=== PATIENT | male | born 1965 | race Caucasian/White ===

== ENCOUNTER 2017-06-10 05:48 | Day surgery (SDC) | payer OTHER ==
[2017-06-10] MEDS ORDERED: DIPRIVAN 200 MG/20 ML IV ONE (05:49)
[2017-06-10] MEDS ORDERED: Ketamine HCl 50 MG/ML IJ ONE (05:49)
[2017-06-10] MEDS ORDERED: Lactated Ringers 1,000 ML IV SCH (06:00)
[2017-06-10 08:02] VITALS: O2SAT 100
[2017-06-10 08:03] VITALS: BP 133/85; PULSE 81
--- NOTE | 2017-06-10 09:50 | OP ---
SURGERY DATE/TIME: 06/10/2017 0655 PREOPERATIVE DIAGNOSIS: Screening exam. POSTOPERATIVE DIAGNOSIS: Normal colon. PROCEDURE: Colonoscopy. SURGEON: Dr. Cameron. ANESTHESIA: MAC. Medications given by anesthesia department. HISTORY: The patient is a 51 year-old white male patient presenting now for screening colonoscopy. He was appraised of the risks of the procedure including the risk of perforation, phlebitis, untoward reaction to medication, bleeding and missed lesions. The patient verbalized his understanding and desired to have the procedure performed. DESCRIPTION OF PROCEDURE: The patient was given the medications by the anesthesia department. He had continuous pulse oximetry, ECG monitoring, intermittent blood pressure monitoring and tidal CO2 monitoring during the examination. He was placed in the left lateral decubitus position. A digital rectal examination was performed and revealed normal anal sphincter tone and no masses and normal prostate. The flexible Olympus pediatric colonoscope was used to intubate the rectum. A view of the colon was developed sequentially to the cecum. Upon insertion and withdrawal, including retroflex view in the rectum, no mucosal lesions were encountered. The scope was removed from the patient who tolerated the procedure well and was sent back to OP recovery in good condition. The prep was noted to be fair to good.
== END 2017-06-10 08:22 | disposition home or self-care (01) ==
LOC: SDC 05:48
PROVIDERS: ATTEND Family Medicine
PROC: 0DJD8ZZ Inspection of Lower Intestinal Tract, Via Natural or Artificial Opening Endoscopic (ICD-10-PCS; principal; 2017-06-10)
DX: Z12.11 Encounter for screening for malignant neoplasm of colon (principal); I10 Essential (primary) hypertension; K21.9 Gastro-esophageal reflux disease without esophagitis
CPT/HCPCS: 00812; J2704

== ENCOUNTER 2018-07-19 19:36 | Emergency (ER) | payer OTHER ==
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
[2018-07-19] MEDS ORDERED: NORCO 5/325 MG PO ONE ×2 (20:45→20:46)
[2018-07-19] MEDS ORDERED: NORCO 5/325 MG ONE (21:14)
[2018-07-19 21:22] VITALS: BP 140/89; PULSE 89; O2SAT 99
--- NOTE | 2018-07-20 08:46 | XRAY ---
Indication: Crush injury. Comparison: None 3 nonweightbearing views of the left foot demonstrates incomplete hairline fracture involving the shaft of the 1st metatarsal. Elsewhere mild 1st MTP bunion deformity. No other bony, articular, or soft tissue abnormalities.
== END 2018-07-19 21:40 | disposition home or self-care (01) ==
LOC: ED 19:36
DX: S92.315A Nondisplaced fracture of first metatarsal bone, left foot, initial encounter for closed fracture (principal); M19.90 Unspecified osteoarthritis, unspecified site; I10 Essential (primary) hypertension; K21.9 Gastro-esophageal reflux disease without esophagitis; Z79.899 Other long term (current) drug therapy; M79.672 Pain in left foot; J44.9 Chronic obstructive pulmonary disease, unspecified
CPT/HCPCS: 73630; 99284; A9270-GY

== ENCOUNTER 2019-02-20 20:31 | Emergency (ER) | payer OTHER ==
[2019-02-20 20:47] VITALS: O2SAT 97
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
[2019-02-20 21:16] LABS: ALBUMIN 4.4 g/dL (3.5-5.0); ALKALINE PHOSPHATASE 83 U/L (38-126); ANION GAP 20.1 MEQ/L (5-15); BLOOD UREA NITROGEN 12 mg/dL (9-20); CHLORIDE 97 mmol/L (98-107); CK-Creatinine Phosphokinase 78 U/L (55-170); Calcium 9.3 mg/dL (8.4-10.2); Carbon Dioxide 24 mmol/L (22-30); Creatinine 1 0.72 mg/dL (0.66-1.25); Glucose 94 mg/dL (74-106); Potassium 3.9 mmol/L (3.5-5.1); SGOT/AST 56 U/L (17-59); SGPT/ALT 47 U/L (0-50); SODIUM 136 mmol/L (137-145); Total Protein 8.1 g/dL (6.3-8.2)
[2019-02-20 21:18] LABS: Absolute Neutrophil Ct (ANC) 5.28 (1.4-6.9); BASOPHIL % 0.4 % (0.0-0.4); Basophil (Absolute #) 0.04 (0-0.4); Eosinophil % 1.3 % (0.00-5.0); Eosinophil (Absolute #) 0.14 (0-0.5); Hematocrit 38.2 % (42-50); Lymphocyte (Absolute #) 3.89 (1.0-4.6); Mean Cell Volume 93.6 fl (78-100); Mean Platelet Volume 10.1 fl (6-9.5); Monocyte (Absolute #) 1.15 (0.0-1.3); Neutrophil % 50.3 % (36.0-66.0); Platelet Count 273 K/mm3 (150-450); Red Blood Count 4.08 M/mm3 (4.1-5.6); White Blood Count 10.5 K/mm3 (4.0-10.5)
[2019-02-20 21:21] LABS: Mean Corpuscular Hemoglobin 31.8 pg (26-32)
[2019-02-20 21:22] VITALS: BP 101/67; PULSE 88
--- NOTE | 2019-02-21 07:06 | XRAY ---
Indication: Chest pain. Comparison: April 02, 2018. Portable chest again hyperinflated and clear. Heart and mediastinal structures within normal limits. Bony thorax intact again with mild degenerative changes, old left 8 rib fracture, and lower cervical fusion surgery. Impression: Stable nonacute hyperinflated chest.
== END 2019-02-20 21:55 | disposition home or self-care (01) ==
LOC: ED 20:31
DX: R07.9 Chest pain, unspecified (principal)
CPT/HCPCS: 36000; 36415; 71045; 80053; 82550; 83735; 84484; 85025; 85379; 93005; 93041; 99284

== ENCOUNTER 2020-08-17 11:58 | Emergency (ER) | payer OTHER ==
[2020-08-17] MEDS ORDERED: Activase 100 MG IV ONE (11:59)
--- NOTE | 2020-08-17 12:16 | XRAY ---
Indication: Possible CVA. Multiple contiguous axial images obtained through the head without contrast. Comparison: November 23, 2010. Age-appropriate global atrophy. New asymmetrically dense right middle cerebral artery, commonly associated with early ischemia. No acute intracranial hemorrhage, abnormal extra-axial fluid collection, or mass effect. Fourth ventricle is midline without hydrocephalus. Aguero-white matter differentiation preserved. Bony calvarium intact. Visualized paranasal sinuses and mastoid air cells are clear. Impression: Hyperdense right MCA, commonly associated with early ischemia. MRI may yield further information.
[2020-08-17 12:19] LABS: Absolute Neutrophil Ct (ANC) 7.27 (1.4-6.9); BASOPHIL % 0.2 % (0.0-0.4); Basophil (Absolute #) 0.02 (0-0.4); Eosinophil (Absolute #) 0.12 (0-0.5); Hematocrit 41.1 % (42-50); Hemoglobin 13.6 gm/dl (12.5-18.0); Lymphocyte (Absolute #) 2.69 (1.0-4.6); Lymphocytes % 23.4 % (24.0-44.0); Mean Cell Volume 93.4 fl (78-100); Mean Corpuscular Hemoglobin 30.9 pg (26-32); Mean Corpuscular Hgb Concent. 33.1 g/dl (32-36); Mean Platelet Volume 9.8 fl (7.5-11.0); Monocyte (Absolute #) 1.42 (0.0-1.3); Monocytes % 12.3 % (0.0-12.0); Neutrophil % 63.1 % (36.0-66.0); Platelet Count 270 K/mm3 (150-450); Red Cell Distribution Width 12.9 % (11.5-14.0); White Blood Count 11.5 K/mm3 (4.0-10.5)
[2020-08-17 12:23] LABS: Appearance SLIGHTLY CLOUDY (CLEAR); Bilirubin NEGATIVE (NEGATIVE); Blood MODERATE Ery/ul (0-5); Glucose NEGATIVE (NEGATIVE); Hyaline Casts 0-2 /LPF (0-2); Ketones NEGATIVE (NEGATIVE); Leukocyte Esterase NEGATIVE (NEGATIVE); Mucus SLIGHT /HPF (NEGATIVE); Nitrite NEGATIVE (NEGATIVE); Protein,Urine Dip NEGATIVE (Negative); Specific Gravity 1.013 (1.005-1.025); Urobilinogen NEGATIVE mg/dL (0-1)
[2020-08-17 12:30] LABS: INR 1.18 (0.8-3.0); PROTIME 13.4 SECONDS (8.83-12.87)
[2020-08-17 12:34] LABS: ALBUMIN 4.5 g/dL (3.5-5.0); ALKALINE PHOSPHATASE 74 U/L (38-126); ANION GAP 13.7 MEQ/L (5-15); BLOOD UREA NITROGEN 7 mg/dL (9-20); CHLORIDE 92 mmol/L (98-107); Calcium 9.6 mg/dL (8.4-10.2); Carbon Dioxide 30 mmol/L (22-30); Creatinine 1 1.08 mg/dL (0.66-1.25); EST GLOMERULAR FILTRATION RATE > 60.0 ML/MIN; Glucose 130 mg/dL (74-106); Potassium 4.5 mmol/L (3.5-5.1); SGOT/AST 32 U/L (17-59); SGPT/ALT 20 U/L (0-50); SODIUM 131 mmol/L (137-145); Total Protein 7.9 g/dL (6.3-8.2)
--- NOTE | 2020-08-17 12:43 | ERPHSYRPT ---
- History of Present Illness Time Seen by Provider: 08/17/20 12:05 Source: patient, family Exam Limitations: no limitations Patient Subjective Stated Complaint: BARNHART, weakness Triage Nursing Assessment: pt to ED c/o BARNHART and weakness onset 0900 this am. rates 10/10 BARNHART above R eye. RN x 2 assist to get pt from WC to bed. L upper and lower extremities have no effort against gravity. denies hx CVA. A&Ox4. states he was getting home from vet when he began to feel bad this am. Physician History: This is a 55-year-old white male who has a history of hypertension, COPD, emphysema, gastroesophageal reflux disease as well as chronic right "blindness". He presents with sudden onset of headache at approximately 930 this morning after he took his pet to the veterinary clinic. Patient came home and had the onset of headache. He was then somewhat confused and had left-sided facial droop as well as left side paralysis. He had some speech changes as well. Patient denies recent head injury. He has not had any recent surgery. He is only on aspirin. He is not on any anticoagulation therapy. Timing/Duration: today Severity: moderate Character of Deficits: new weakness, altered sensation, unable to speak Deficits: cannot stand, cannot walk Baseline/Normal Cognition: alert oriented x 3 Current Cognition: alert but confused Baseline Gait: walks w/o assistance Associated Symptoms: weakness (left side), slurred speech, headache Allergies/Adverse Reactions: No Known Drug Allergies Allergy (Verified 02/20/19 20:41) Home Medications: Albuterol Sulfate [Proair Hfa] 8.5 gm IH QIDPRN PRN 08/30/13 [History] Aspirin 81 mg PO DAILY 03/10/16 [History] Lisinopril 5 mg [Zestril 5 MG] 5 mg PO DAILY 03/10/16 [History] Cyclobenzaprine HCl 10 mg [Cyclobenzaprine 10 MG] 10 mg PO TID 06/09/17 [History] Fluticasone/Vilanterol [Breo Ellipta 100-25 Mcg INH] 1 each IH DAILY 06/09/17 [History] Montelukast Sodium 10 mg [Singulair 10 MG] 10 mg PO DAILY 06/09/17 [History] Omeprazole 20 MG [Prilosec 20 mg] 20 mg PO DAILY 06/09/17 [History] Hx Tetanus, Diphtheria Vaccination/Date Given: Yes (2015) Hx Influenza Vaccination/Date Given: Yes Hx Pneumococcal Vaccination/Date Given: Yes Travel Risk - International Travel Have you traveled outside of the country in past 3 weeks: No - Coronavirus Screening Are you exhibiting any of the following symptoms?: No Close contact with a COVID-19 positive Pt in past 14-21 Days: No - Vaccine Status Have you recieved a Covid-19 vaccination: No - Review of Systems Constitutional: No Symptoms Eyes: No Symptoms Ears, Nose, & Throat: No Symptoms Respiratory: No Symptoms Cardiac: No Symptoms Abdominal/Gastrointestinal: No Symptoms Genitourinary Symptoms: No Symptoms Musculoskeletal: No Symptoms Neurological: Headache, Speech Changes, Other (Cannot move left side upper and lower extremities) Psychological: No Symptoms Endocrine: No Symptoms Hematologic/Lymphatic: No Symptoms Immunological/Allergic: No Symptoms All Other Systems: Reviewed and Negative - Past Medical History Pertinent Past Medical History: Yes Neurological History: Migraines ENT History: No Pertinent History Cardiac History: No Pertinent History, Hypertension Respiratory History: COPD, Emphysema, Pneumonia Endocrine Medical History: No Pertinent History Musculoskeletal History: Arthritis, Other GI Medical History: GERD History: No Pertinent History Psycho-Social History: No Pertinent History Male Reproductive Disorders: No Pertinent History Other Medical History: pt c/o diff with his right lung past year(pt states asbestos) 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 - Past Surgical History Past Surgical History: Yes Neuro Surgical History: No Pertinent History Cardiac: No Pertinent History Respiratory: No Pertinent History Gastrointestinal: No Pertinent History Genitourinary: No Pertinent History Musculoskeletal: No Pertinent History Male Surgical History: No Pertinent History Other Surgical History: NECK SURG X2( states "i don't know,they put something in it cause it was deteorated"),EAR SURG( ear drum hole closed with skin graft when "i was young" - Social History Smoking Status: Light tobacco smoker How long have you smoked: 36 years Exposure to second hand smoke: No Alcohol Use: Socially Drug Use: none Patient Lives Alone: No Significant Family History: hypertension - Nursing Vital Signs Nursing Vital Signs: Initial Vital Signs Temperature 98.9 F 08/17/20 12:02 Pulse Rate 89 08/17/20 12:02 Respiratory Rate 18 08/17/20 12:02 Blood Pressure 142/96 08/17/20 12:02 O2 Sat by Pulse Oximetry 97 08/17/20 12:02 Pain Scale Pain Intensity 0 - Physical Exam SpO2: 98 - Course Nursing assessment & vital signs reviewed: Yes EKG Interpreted by Me: RATE (89), Sinus Rhythm, NORMAL AXIS, NORMAL INTERVALS, NORMAL QRS, NORMAL ST-T, Other (No significant change from EKG dated 02/20/2019. There are no acute ischemic changes.) Ordered Tests: Active Orders 24 hr Category Date Time Status Sample Sewer STAT Care 08/17/20 12:02 Active EKG-ER Only STAT Care 08/17/20 12:02 Active IV Insertion STAT Care 08/17/20 12:02 Active NPO (ED) STAT Care 08/17/20 12:02 Active POCT Glucose Check STAT Care 08/17/20 12:02 Active Pulse Oximetry (ED) STAT Care 08/17/20 12:02 Active CTA HEAD W AND/OR WO CONTRAST [CT] Stat Exams 08/17/20 12:58 Taken HEAD WITHOUT CONTRAST [CT] Stat Exams 08/17/20 12:00 Completed CBC W DIFF Stat Lab 08/17/20 12:15 Completed CMP Stat Lab 08/17/20 12:15 Completed PROTIME WITH INR Stat Lab 08/17/20 12:15 Completed PTT Stat Lab 08/17/20 13:51 Ordered TROPONIN Q3H Lab 08/17/20 14:00 Ordered TROPONIN Q3H Lab 08/17/20 17:00 Ordered TROPONIN Q3H Lab 08/17/20 20:00 Ordered TROPONIN Q3H Lab 08/17/20 23:00 Ordered UA W/RFX UR CULTURE Stat Lab 08/17/20 12:15 Completed Medication Summary Generic Name Dose Route Start Last Admin Trade Name Freq PRN Reason Stop Dose Admin Sodium Chloride 500 mls @ 60 mls/hr 08/17/20 14:00 08/17/20 13:51 Sodium Chloride 0.9% 500 Ml IV 09/16/20 13:59 60 mls/hr .[id number] Administration Discontinued Medications Generic Name Dose Route Start Last Admin Trade Name Freq PRN Reason Stop Dose Admin Alteplase, Recombinant 6 mg 08/17/20 13:06 08/17/20 12:56 Activase 100 Mg IV 08/17/20 13:07 60 mg STAT STA Administration Lab/Rad Data: Laboratory Result Diagrams 08/17/20 12:15 08/17/20 12:15 Laboratory Results 08/17/20 08/17/20 08/17/20 Range/Units 12:15 12:15 12:15 WBC 11.5 H (4.0-10.5) K/mm3 RBC 4.40 (4.1-5.6) M/mm3 Hgb 13.6 (12.5-18.0) gm/dl Hct 41.1 L (42-50) % MCV 93.4 (78-100) fl MCH 30.9 (26-32) pg MCHC 33.1 (32-36) g/dl RDW 12.9 (11.5-14.0) % Plt Count 270 (150-450) K/mm3 MPV 9.8 (7.5-11.0) fl Gran % 63.1 (36.0-66.0) % Eos # (Auto) 0.12 (0-0.5) Absolute Lymphs (auto) 2.69 (1.0-4.6) Absolute Monos (auto) 1.42 H (0.0-1.3) Lymphocytes % 23.4 L (24.0-44.0) % Monocytes % 12.3 H (0.0-12.0) % Eosinophils % 1.0 (0.00-5.0) % Basophils % 0.2 (0.0-0.4) % Absolute Granulocytes 7.27 H (1.4-6.9) Basophils # 0.02 (0-0.4) PT 13.4 H (8.83-12.87) SECONDS INR 1.18 (0.8-3.0) Sodium 131 L (137-145) mmol/L Potassium 4.5 (3.5-5.1) mmol/L Chloride 92 L (98-107) mmol/L Carbon Dioxide 30 (22-30) mmol/L Anion Gap 13.7 (5-15) MEQ/L BUN 7 L (9-20) mg/dL Creatinine 1.08 (0.66-1.25) mg/dL Estimated GFR > 60.0 ML/MIN Glucose 130 H (74-106) mg/dL Calcium 9.6 (8.4-10.2) mg/dL Total Bilirubin 0.60 (0.2-1.3) mg/dL AST 32 (17-59) U/L ALT 20 (0-50) U/L Alkaline Phosphatase 74 (38-126) U/L Serum Total Protein 7.9 (6.3-8.2) g/dL Albumin 4.5 (3.5-5.0) g/dL Urine Color (YELLOW) Urine Appearance (CLEAR) Urine pH (5-6) Ur Specific [place] (1.005-1.025) Urine Protein (Negative) Urine Ketones (NEGATIVE) Urine Blood (0-5) Pa/ul Urine Nitrite (NEGATIVE) Urine Bilirubin (NEGATIVE) Urine Urobilinogen (0-1) mg/dL Ur Leukocyte Esterase (NEGATIVE) Urine WBC (Auto) (0-5) /HPF Urine RBC (Auto) (0-2) /HPF U Hyaline Cast (Auto) (0-2) /LPF Urine Bacteria (Auto) (NEGATIVE) /HPF Urine Mucus (Auto) (NEGATIVE) /HPF Urine Culture Reflexed (NO) Urine Glucose (NEGATIVE) mg/dL 08/17/20 Range/Units 12:15 WBC (4.0-10.5) K/mm3 RBC (4.1-5.6) M/mm3 Hgb (12.5-18.0) gm/dl Hct (42-50) % MCV (78-100) fl MCH (26-32) pg MCHC (32-36) g/dl RDW (11.5-14.0) % Plt Count (150-450) K/mm3 MPV (7.5-11.0) fl Gran % (36.0-66.0) % Eos # (Auto) (0-0.5) Absolute Lymphs (auto) (1.0-4.6) Absolute Monos (auto) (0.0-1.3) Lymphocytes % (24.0-44.0) % Monocytes % (0.0-12.0) % Eosinophils % (0.00-5.0) % Basophils % (0.0-0.4) % Absolute Granulocytes (1.4-6.9) Basophils # (0-0.4) PT (8.83-12.87) SECONDS INR (0.8-3.0) Sodium (137-145) mmol/L Potassium (3.5-5.1) mmol/L Chloride (98-107) mmol/L Carbon Dioxide (22-30) mmol/L Anion Gap (5-15) MEQ/L BUN (9-20) mg/dL Creatinine (0.66-1.25) mg/dL Estimated GFR ML/MIN Glucose (74-106) mg/dL Calcium (8.4-10.2) mg/dL Total Bilirubin (0.2-1.3) mg/dL AST (17-59) U/L ALT (0-50) U/L Alkaline Phosphatase (38-126) U/L Serum Total Protein (6.3-8.2) g/dL Albumin (3.5-5.0) g/dL Urine Color YELLOW (YELLOW) Urine Appearance SLIGHTLY CLOUDY (CLEAR) Urine pH 5.0 (5-6) Ur Specific [place] 1.013 (1.005-1.025) Urine Protein NEGATIVE (Negative) Urine Ketones NEGATIVE (NEGATIVE) Urine Blood MODERATE (0-5) Pa/ul Urine Nitrite NEGATIVE (NEGATIVE) Urine Bilirubin NEGATIVE (NEGATIVE) Urine Urobilinogen NEGATIVE (0-1) mg/dL Ur Leukocyte Esterase NEGATIVE (NEGATIVE) Urine WBC (Auto) 3-5 (0-5) /HPF Urine RBC (Auto) 16-25 (0-2) /HPF U Hyaline Cast (Auto) 0-2 (0-2) /LPF Urine Bacteria (Auto) NONE (NEGATIVE) /HPF Urine Mucus (Auto) SLIGHT (NEGATIVE) /HPF Urine Culture Reflexed NO (NO) Urine Glucose NEGATIVE (NEGATIVE) mg/dL - Progress Progress: improved, re-examined Progress Note: 08/17/20 13:03 Medical decision making: This patient view is in need of TPA. Neurologist is evaluating the patient via teleneurology. She agrees. She also recommends a CTA of the head with rapid infusion of the contrast to evaluate for clot in the distribution of the middle cerebral artery. The radiology department states that they do not do a CT a perfusion at our institution. CAT scan of the head without contrast shows new asymmetrically dense right middle cerebral artery commonly associated with early ischemia. No evidence of intracranial hemorrhage. 08/17/20 13:59 Medical decision making: The patient underwent the teleneurology consultation. The patient received TPA. His NIH score went from 15-13. The CTA of the head results have not returned but I did contact Dr. Buenrostro, neurologist at [facility]. I reviewed the patient history, condition, management that occurred here in the emergency department as well as the work-up results. Dr. Buenrostro has no new recommendations other than to get the patient to [place]. Have called an air ambulance system to transport this patient. Counseled pt/family regarding: lab results, diagnosis, rad results - Departure Departure Disposition: Transfer Clinical Impression: Acute CVA (cerebrovascular accident) Condition: Stable Critical Care Time: Yes Critical Care Time(excluding separately billable procedures): Critical 30-74 mins Referrals: NOELLE PALMER [Primary Care Provider] -
[2020-08-17] MEDS: Activase 100 MG IV STA (12:56)
[2020-08-17] MEDS ORDERED: Sodium Chloride 0.9% 500 ML 500 ML IV ONE (13:51)
[2020-08-17] MEDS: Sodium Chloride 0.9% 500 ML 500 ML IV SCH (13:51)
--- NOTE | 2020-08-17 14:05 | XRAY ---
Indication: Left-sided paralysis. Weakness. Right middle cerebral artery ischemia. Conventional contrast enhanced CTA head performed using 100 cc Isovue 370 contrast. Two-dimensional sagittal and coronal reformatted images obtained. Additional 3-dimensional reformatted images obtained using a separate workstation. Comparison: None Distal right internal carotid artery including carotid siphon and carotid terminus are occluded. Distal left internal carotid artery demonstrates mild carotid siphon calcifications producing less than 50% stenosis. Normal left carotid terminus with normal branching left anterior and left middle cerebral arteries. Right anterior cerebral artery is normal in CTA appearance and supplied via anterior communicating artery. The right middle cerebral artery and its distal branches appear attenuated and perfused via both anterior and right posterior communicating arteries. Posterior circulation demonstrates dominant distal left vertebral artery and attenuated right vertebral artery. Normal CTA appearance to the basilar artery, basilar tip, posterior cerebral, and anterior inferior cerebellar arteries. There is no abnormal enhancing intra or extra-axial mass. Impression: 1. 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 2. Right middle cerebral artery and more distal branches are attenuated and appear to be perfused via remaining [place] arteries, specifically anterior communicating and right posterior communicating arteries. 3. Remaining CTA head is negative.
[2020-08-17] MEDS ORDERED: solu-MEDROL 125 MG ONE (14:08)
[2020-08-17] MEDS ORDERED: BENADRYL 50 MG/ML ONE (14:08)
[2020-08-17] MEDS ORDERED: Pepcid 20 MG VIAL IV ONE (14:08)
[2020-08-17] MEDS: BENADRYL 50 MG/ML IV ONE (14:10)
[2020-08-17] MEDS: solu-MEDROL 125 MG IV ONE (14:10)
[2020-08-17] MEDS: Pepcid 20 MG VIAL IV SCH (14:10)
[2020-08-17 14:14] VITALS: BP 149/88; PULSE 97; O2SAT 97
== END 2020-08-17 15:00 | disposition short-term general hospital (02) ==
LOC: ED 11:58
DX: I63.9 Cerebral infarction, unspecified (principal); R51.9 Headache, unspecified; R53.1 Weakness; I10 Essential (primary) hypertension; J44.9 Chronic obstructive pulmonary disease, unspecified; Z79.899 Other long term (current) drug therapy
CPT/HCPCS: 36000; 36415; 70450; 70496; 80053; 81001; 84484; 85025; 85610; 85730; 93005; 93041; 94760; 96374; 96375; 99285; 99291; J1200; J2930; J2997

== ENCOUNTER 2020-10-26 06:36 | Day surgery (SDC) | payer OTHER ==
--- NOTE | 2020-10-20 14:32 | HP ---
DATE OF SURGERY: 10/26/2020 HISTORY OF PRESENT ILLNESS: The patient presents with undesired PEG tube. Reports that he had a stroke back in August 2020 and that is why the PEG tube was placed. He is eating fine now and the patient desires removal. PEG tube was placed at [facility]. It is very tender. Attempted removal in office was too painful for patient. PAST MEDICAL HISTORY: Hypertension, stroke, chronic obstructive pulmonary disease, hyperlipidemia. PAST SURGICAL HISTORY: Two neck surgeries. ALLERGIES: IV CONTRAST. MEDICATIONS: Tylenol, Albuterol, atorvastatin, lisinopril, Seroquel, aspirin, metoprolol, Singulair, Nitro, Protonix, fluticasone, gabapentin. FAMILY HISTORY: Blood clots. SOCIAL HISTORY: Drinks two beers a day. REVIEW OF SYSTEMS: CONSTITUTIONAL: Denies fever or chills. CHEST: Denies shortness of breath. CVS: Denies chest pain. ABDOMEN: Denies abdominal pain. INTEGUMENTARY: Negative. PHYSICAL EXAMINATION: GENERAL: No acute distress. CHEST: Nonlabored. No shortness of breath. CVS: Regular rate and rhythm. ABDOMEN: Soft, nontender. PEG tube in place. EXTREMITIES: No edema. NEUROLOGIC: Alert. PSYCHIATRIC: Appropriate. IMPRESSION: Undesired PEG tube. PLAN: Endoscopic removal of G-tube with Dr. Kenny Bloom. As dictated by Mai Caba NP.
[2020-10-26] MEDS ORDERED: Lactated Ringers 1,000 ML IV ONE (06:59)
[2020-10-26] MEDS ORDERED: Lactated Ringers 1,000 ML IV SCH (07:00)
[2020-10-26] MEDS ORDERED: DIPRIVAN 200 MG/20 ML IV ONE ×2 (09:37→09:49)
[2020-10-26 10:34] VITALS: O2SAT 95
--- NOTE | 2020-10-26 10:43 | OP ---
SURGERY DATE/TIME: 10/26/2020 0938 PREOPERATIVE DIAGNOSIS: Undesired PEG tube. POSTOPERATIVE DIAGNOSIS: The PEG tube has been successfully removed. There are no remnants left either externally or internally visible. On palpation there is slight induration but I think it is satisfactory right below the xiphoid. PROCEDURE: G-tube removal. SURGEON: Kenny Bloom M.D. ANESTHESIA: MAC. DESCRIPTION OF PROCEDURE: The scope is introduced. The pharyngoesophageal junction is normal. Esophagus normal. Gastroesophageal junction normal. Fundus, body and antrum satisfactory. Pylorus satisfactory. Duodenal bulb satisfactory. Second portion satisfactory. The scope withdrawn looped upon itself. Gastroesophageal junction satisfactory with no hiatal hernia. The G-tube hole was totally healed and the area was palpated externally and visualized internally and it was so healed that you really could hardly feel where it was other than under the external scar. It looked normal and there was no suggestion of any retained parts. Scope withdrawn. The patient tolerated the procedure satisfactorily. IMPRESSION: Satisfactory complete G-tube removal.
[2020-10-26 11:10] VITALS: BP 147/69; PULSE 76
== END 2020-10-26 11:05 | disposition home or self-care (01) ==
LOC: SDC 06:36
PROVIDERS: ATTEND Surgery
DX: Z43.1 Encounter for attention to gastrostomy (principal); Z86.73 Personal history of transient ischemic attack (TIA), and cerebral infarction without residual deficits; I10 Essential (primary) hypertension; J44.9 Chronic obstructive pulmonary disease, unspecified; E78.5 Hyperlipidemia, unspecified; Z79.899 Other long term (current) drug therapy; F17.210 Nicotine dependence, cigarettes, uncomplicated
CPT/HCPCS: J2704

== ENCOUNTER 2021-04-18 19:25 | Emergency (ER) | payer OTHER ==
--- NOTE | 2021-04-18 19:50 | ERPHSYRPT ---
- History of Present Illness Time Seen by Provider: 04/18/21 19:28 Source: patient Exam Limitations: no limitations Patient Subjective Stated Complaint: pt states he has been feeling bad since friday. states he has had a cough, chills, and fatigue. Triage Nursing Assessment: pt alert and oriented, answers questions approp. pt ambulatory with steady gait noted. respirations nonlabored with lungs cta. skin warm and dry. Physician History: 55 years old male with history of stroke with left-sided residual weakness, un vaccinated against COVID-19 presented in the ER with chief complaint of generalized weakness fatigue tiredness, subjective feeling of fever chills and body aches. Progressively worsening. Taking [id number] medication with symptomatic relief. Denies any cough, chest pain, shortness of breath /palpitations. No abdominal pain nausea or vomiting. Timing/Duration: day(s) (3), constant, gradual onset, worse Severity: moderate Associated Symptoms: nausea, cough, chills, fever, headaches, loss of appetite, malaise, weakness, No vomiting, No abdominal pain, No shortness of breath Allergies/Adverse Reactions: Iodinated Contrast Media Allergy (Severe, Verified 04/18/21 20:43) Home Medications: Albuterol Sulfate [Proair Hfa] 8.5 gm IH QIDPRN PRN 08/30/13 [History] Aspirin 81 mg PO DAILY 03/10/16 [History] Lisinopril 5 mg [Zestril 5 MG] 10 mg PO DAILY 03/10/16 [History] Fluticasone/Vilanterol [Breo Ellipta 100-25 Mcg INH] 1 each IH DAILY 06/09/17 [History] Montelukast Sodium 10 mg [Singulair 10 MG] 10 mg PO DAILY 06/09/17 [History] Acetaminophen 325 mg [Tylenol 325 mg] 2 tab PO Q4HPRN PRN 10/17/20 [History] Albuterol/Ipratropium 3ml Neb* [DUONEB 0.5-3 MG/3 ml Neb] 3 ml IH DAILY 10/17/20 [History] Atorvastatin Calcium 40 mg PO DAILY 10/17/20 [History] Gabapentin 300 mg [Neurontin 300 mg] 300 mg PO TID 10/17/20 [History] Metoprolol Tartrate 25 mg PO DAILY 10/17/20 [History] Nitroglycerin 0.4 mg Tablet [Nitrostat 0.4 MG Tablet] 0.4 mg SL Q5MIN PRN MR X 3 PRN 10/17/20 [History] PANTOPRAZOLE 40 mg Tablet [Protonix 40MG Tablet] 40 mg PO BID 10/17/20 [History] Quetiapine Fumarate 25 mg [Seroquel 25 MG] 25 mg PO HS 10/17/20 [History] Sennosides [Senna Laxative] 8.6 mg PO DAILY 10/17/20 [History] Hx Tetanus, Diphtheria Vaccination/Date Given: Yes (2015) Hx Influenza Vaccination/Date Given: No Hx Pneumococcal Vaccination/Date Given: Yes Immunizations Up to Date: Yes Travel Risk - International Travel Have you traveled outside of the country in past 3 weeks: No - Coronavirus Screening Are you exhibiting any of the following symptoms?: Yes Symptoms: Cough: New Onset, Headaches/Body Aches/Fatigue Close contact with a COVID-19 positive Pt in past 14-21 Days: No - Vaccine Status Have you recieved a Covid-19 vaccination: No - Review of Systems Constitutional: Fever, Chills, Fatigue, Weakness Eyes: No Symptoms Ears, Nose, & Throat: No Symptoms Respiratory: No Symptoms Cardiac: No Symptoms Abdominal/Gastrointestinal: No Symptoms Genitourinary Symptoms: No Symptoms Musculoskeletal: Myalgias Skin: No Symptoms Neurological: Headache Psychological: No Symptoms Endocrine: No Symptoms Hematologic/Lymphatic: No Symptoms Immunological/Allergic: Pollen Allergy - Past Medical History Pertinent Past Medical History: Yes Neurological History: Stroke ENT History: No Pertinent History Cardiac History: High Cholesterol, Hypertension Respiratory History: COPD Endocrine Medical History: No Pertinent History Musculoskeletal History: No Pertinent History GI Medical History: GERD History: No Pertinent History Psycho-Social History: No Pertinent History Male Reproductive Disorders: No Pertinent History Other Medical History: dentures - Past Surgical History Past Surgical History: Yes Neuro Surgical History: No Pertinent History Cardiac: No Pertinent History Respiratory: No Pertinent History Gastrointestinal: No Pertinent History Genitourinary: No Pertinent History Musculoskeletal: No Pertinent History Male Surgical History: No Pertinent History Other Surgical History: NECK SURG X2( states "i don't know,they put something in it cause it was deteorated"),EAR SURG( ear drum hole closed with skin graft when "i was young". G-tube placement 08-21-2020 - Social History Smoking Status: Former smoker How long have you smoked: 36 years Exposure to second hand smoke: No Alcohol Use: Socially Drug Use: none Patient Lives Alone: No Significant Family History: hypertension - Nursing Vital Signs Nursing Vital Signs: Initial Vital Signs Temperature 98.6 F 04/18/21 19:36 Pulse Rate 102 H 04/18/21 19:36 Respiratory Rate 18 04/18/21 19:36 Blood Pressure 148/103 04/18/21 19:36 O2 Sat by Pulse Oximetry 99 04/18/21 19:36 Pain Scale Pain Intensity 0 - Physical Exam General Appearance: no apparent distress, alert Eye Exam: PERRL/EOMI, eyes nml inspection Ears, Nose, Throat Exam: normal ENT inspection, TMs normal, pharynx normal, moist mucous membranes Neck Exam: normal inspection, non-tender, supple, full range of motion Respiratory Exam: normal breath sounds, lungs clear Cardiovascular Exam: regular rate/rhythm, normal heart sounds Gastrointestinal/Abdomen Exam: soft, normal bowel sounds, No tenderness Back Exam: normal inspection, normal range of motion Extremity Exam: normal inspection, normal range of motion, pelvis stable Neurologic Exam: alert, oriented x 3, cooperative, server developer II-XII nml as tested, normal mood/affect Skin Exam: normal color SpO2 Interpretation: normal SpO2: 99 O2 Delivery: Room Air Ordered Tests: Active Orders 24 hr Category Date Time Status IV Insertion STAT Care 04/18/21 20:13 Active CHEST 1 VIEW (PORTABLE) Stat Exams 04/18/21 20:14 Taken BLOOD CULTURE Stat Lab 04/18/21 20:14 Received CBC W DIFF Stat Lab 04/18/21 20:58 Completed CMP Stat Lab 04/18/21 20:58 Completed Lactic Acid Stat Lab 04/18/21 20:13 Completed UA W/RFX UR CULTURE Stat Lab 04/18/21 20:14 Ordered Medication Summary Discontinued Medications Generic Name Dose Route Start Last Admin Trade Name Freq PRN Reason Stop Dose Admin Acetaminophen 975 mg 04/18/21 20:13 04/18/21 20:31 Acetaminophen 325 Mg Tablet PO 12/01/21 20:14 975 mg STAT ONE Administration Acetaminophen Confirm 04/18/21 20:30 Acetaminophen 325 Mg Tablet Administered 04/18/21 20:31 Dose 975 mg .ROUTE .STK-MED ONE Lab/Rad Data: Laboratory Result Diagrams 04/18/21 20:58 04/18/21 20:58 Laboratory Results 04/18/21 04/18/21 04/18/21 Range/Units 20:58 20:58 20:13 WBC 5.4 (4.0-10.5) K/mm3 RBC 4.99 (4.1-5.6) M/mm3 Hgb 14.4 (12.5-18.0) gm/dl Hct 45.3 (42-50) % MCV 90.8 (78-100) fl MCH 28.9 (26-32) pg MCHC 31.8 L (32-36) g/dl RDW 14.6 H (11.5-14.0) % Plt Count 206 (150-450) K/mm3 MPV 11.1 H (7.5-11.0) fl Gran % 42.7 (36.0-66.0) % Eos # (Auto) 0.04 (0-0.5) Absolute Lymphs (auto) 2.36 (1.0-4.6) Absolute Monos (auto) 0.67 (0.0-1.3) Lymphocytes % 43.8 (24.0-44.0) % Monocytes % 12.4 H (0.0-12.0) % Eosinophils % 0.7 (0.00-5.0) % Basophils % 0.4 (0.0-0.4) % Absolute Granulocytes 2.30 (1.4-6.9) Basophils # 0.02 (0-0.4) Sodium 136 L (137-145) mmol/L Potassium 3.8 (3.5-5.1) mmol/L Chloride 97 L (98-107) mmol/L Carbon Dioxide 25 (22-30) mmol/L Anion Gap 18.0 H (5-15) MEQ/L BUN 12 (9-20) mg/dL Creatinine 0.70 (0.66-1.25) mg/dL Estimated GFR > 60.0 ML/MIN Glucose 91 (74-106) mg/dL Lactic Acid 1.1 (0.4-2.0) Calcium 9.1 (8.4-10.2) mg/dL Total Bilirubin 0.60 (0.2-1.3) mg/dL AST 42 (17-59) U/L ALT 19 (0-50) U/L Alkaline Phosphatase 71 (38-126) U/L Serum Total Protein 8.0 (6.3-8.2) g/dL Albumin 4.7 (3.5-5.0) g/dL - Progress Progress: improved, re-examined Progress Note: 04/18/21 22:18 55 years old is evaluated for flulike symptoms. Grossly unremarkable work-up including chest x-ray reviewed by me, official report is pending. Patient is unvaccinated and could be possible he probably have COVID-19. Outpatient testing is done, recommended contact/droplet precautions and symptomatic treatment/outpatient follow-up. Discussed signs symptoms of worsening needing return to ER which he seems understanding. Patient is maintaining oxygen saturation at around 99% on room air without any distress. Nontoxic appearance. Stable for discharge. Counseled pt/family regarding: lab results, diagnosis, need for follow-up, rad results - Departure Departure Disposition: Home Clinical Impression: Acute viral syndrome Condition: Stable Critical Care Time: No Referrals: NOELLE PALMER [Primary Care Provider] - Follow up/PCP as directed (1-2 days for reevaluation) Instructions: Viral Syndrome (DC) Additional Instructions: Take Tylenol as needed. Drink plenty of fluids. Follow contact/droplet precautions until your COVID-19 test is back. Return to ER if having worsening cough, persistent high-grade fever, difficulty breathing etc.
[2021-04-18] MEDS ORDERED: TYLENOL 325 MG PO ONE (20:13)
[2021-04-18] MEDS ORDERED: TYLENOL 325 MG ONE (20:30)
[2021-04-18 21:03] LABS: BASOPHIL % 0.4 % (0.0-0.4); Basophil (Absolute #) 0.02 (0-0.4); Eosinophil % 0.7 % (0.00-5.0); Eosinophil (Absolute #) 0.04 (0-0.5); Hematocrit 45.3 % (42-50); Hemoglobin 14.4 gm/dl (12.5-18.0); Lymphocyte (Absolute #) 2.36 (1.0-4.6); Lymphocytes % 43.8 % (24.0-44.0); Mean Cell Volume 90.8 fl (78-100); Mean Corpuscular Hemoglobin 28.9 pg (26-32); Mean Corpuscular Hgb Concent. 31.8 g/dl (32-36); Mean Platelet Volume 11.1 fl (7.5-11.0); Monocyte (Absolute #) 0.67 (0.0-1.3); Monocytes % 12.4 % (0.0-12.0); Neutrophil % 42.7 % (36.0-66.0); Platelet Count 206 K/mm3 (150-450); Red Blood Count 4.99 M/mm3 (4.1-5.6); Red Cell Distribution Width 14.6 % (11.5-14.0); White Blood Count 5.4 K/mm3 (4.0-10.5)
[2021-04-18 21:21] LABS: ALBUMIN 4.7 g/dL (3.5-5.0); ALKALINE PHOSPHATASE 71 U/L (38-126); BLOOD UREA NITROGEN 12 mg/dL (9-20); CHLORIDE 97 mmol/L (98-107); Calcium 9.1 mg/dL (8.4-10.2); Carbon Dioxide 25 mmol/L (22-30); EST GLOMERULAR FILTRATION RATE > 60.0 ML/MIN; Glucose 91 mg/dL (74-106); Potassium 3.8 mmol/L (3.5-5.1); SGOT/AST 42 U/L (17-59); SGPT/ALT 19 U/L (0-50); SODIUM 136 mmol/L (137-145)
[2021-04-18 22:35] VITALS: BP 131/93; PULSE 88; O2SAT 95
--- NOTE | 2021-04-19 08:58 | XRAY ---
Indication: Fever and weakness. Comparison: February 20, 2019. Portable chest remains hyperinflated and clear. Heart not enlarged. Bony thorax intact again with mild degenerative changes, old left 8 rib fracture, and lower cervical fusion surgery. No new/acute abnormalities.
== END 2021-04-18 22:45 | disposition home or self-care (01) ==
LOC: ED 19:25
DX: B34.9 Viral infection, unspecified (principal); R11.0 Nausea; R05.9 Cough, unspecified; R50.9 Fever, unspecified; R51.9 Headache, unspecified; I10 Essential (primary) hypertension; E78.5 Hyperlipidemia, unspecified
CPT/HCPCS: 36000; 36415; 71045; 80053; 83605; 85025; 87040; 99284; U0003; A9270-GY

== ENCOUNTER 2022-05-03 07:39 | Emergency (ER) | payer OTHER ==
[2012-05-19 08:01] VITALS: BP 123/66
--- NOTE | 2022-05-03 07:56 | ERPHSYRPT ---
- History of Present Illness Time Seen by Provider: 05/03/22 07:55 Source: patient, family Exam Limitations: clinical condition Physician History: This is a 66-year-old white male patient who is blind in his right eye and has no sensation per his report and has had a stroke in the past with left-sided weakness. His complaint is of eye pain in the left eye that has been persistent since yesterday. Patient has been living in a trailer outside of his brother's home and it is being powered by a battery. Apparently, the patient was seen at a walk-in clinic and was given a "salve" to put in his eyes. Patient's brother stated that he went back into the trailer. The patient then complained to his brother that his eyes were still hurting and therefore the brother went into the trailer and found that there was significant fumes in the trailer. The patient's brother then brought the patient into his home. This morning he has persistent left eye pain. He has no other complaints. He denies chest pain. He denies shortness of breath. Timing/Duration: yesterday Location: left eye Severity: mild (To moderate) Apparent Injury: no Associated Symptoms: burning, redness Visual Assistive Devices: None Chemical Exposure: Yes (Unknown type but as fumes not directly into his eyes) Allergies/Adverse Reactions: Iodinated Contrast Media Allergy (Severe, Verified 05/03/22 08:52) shellfish derived Allergy (Verified 05/03/22 08:52) Home Medications: Albuterol Sulfate [Proair Hfa] 8.5 gm IH QIDPRN PRN 08/30/13 [History] Aspirin 81 mg PO DAILY 03/10/16 [History] Lisinopril 5 mg [Zestril 5 MG] 10 mg PO DAILY 03/10/16 [History] Fluticasone/Vilanterol [Breo Ellipta 100-25 Mcg INH] 1 each IH DAILY 06/09/17 [History] Montelukast Sodium 10 mg [Singulair 10 MG] 10 mg PO DAILY 06/09/17 [History] Acetaminophen 325 mg [Tylenol 325 mg] 2 tab PO Q4HPRN PRN 10/17/20 [History] Albuterol/Ipratropium 3ml Neb* [DUONEB 0.5-3 MG/3 ml Neb] 3 ml IH DAILY 10/17/20 [History] Atorvastatin Calcium 40 mg PO DAILY 10/17/20 [History] Gabapentin [Neurontin ] 300 mg PO TID 10/17/20 [History] Metoprolol Tartrate 25 mg PO DAILY 10/17/20 [History] Nitroglycerin 0.4 mg Tablet [Nitrostat 0.4 MG Tablet] 0.4 mg SL Q5MIN PRN MR X 3 PRN 10/17/20 [History] PANTOPRAZOLE 40 mg Tablet [Protonix 40MG Tablet] 40 mg PO BID 10/17/20 [History] Quetiapine Fumarate 25 mg [Seroquel 25 MG] 25 mg PO HS 10/17/20 [History] Sennosides [Senna Laxative] 8.6 mg PO DAILY 10/17/20 [History] Clopidogrel Bisulfate [PLAVIX Tablet] 75 mg PO DAILY 05/03/22 [History] Travel Risk - International Travel Have you traveled outside of the country in past 3 weeks: No - Coronavirus Screening Are you exhibiting any of the following symptoms?: No Close contact with a COVID-19 positive Pt in past 14-21 Days: No - Review of Systems Constitutional: Other (Anxious) Eyes: Eye Pain (Left), Eye Redness (Left) Ears, Nose, & Throat: No Symptoms Respiratory: No Symptoms Cardiac: No Symptoms Abdominal/Gastrointestinal: No Symptoms Genitourinary Symptoms: No Symptoms Musculoskeletal: No Symptoms Skin: No Symptoms Neurological: No Symptoms Psychological: Anxiety Endocrine: No Symptoms Hematologic/Lymphatic: No Symptoms Immunological/Allergic: No Symptoms All Other Systems: Reviewed and Negative - Past Medical History Pertinent Past Medical History: Yes - Past Surgical History Past Surgical History: Yes - Nursing Vital Signs Nursing Vital Signs: Initial Vital Signs Temperature 97.6 F 05/03/22 07:48 Pulse Rate 132 H 05/03/22 07:48 Blood Pressure 174/119 05/03/22 07:48 O2 Sat by Pulse Oximetry 99 05/03/22 07:48 Pain Scale Pain Intensity 10 - Physical Exam General Appearance: mild distress, alert, anxiety Eye Exam: left eye: PERRL, bilateral eye: EOMI, conjunctival inflammation (Mild bilateral) Ears, Nose, Throat Exam: normal ENT inspection, moist mucous membranes Neck Exam: normal inspection, non-tender, supple, full range of motion Respiratory Exam: normal breath sounds, lungs clear, No chest tenderness, No respiratory distress Cardiovascular Exam: tachycardia Gastrointestinal Exam: soft, normal bowel sounds, No tenderness Extremity Exam: normal inspection, normal range of motion, pelvis stable Neurologic: alert, oriented x 3, cooperative, other (Patient has had a stroke in the past and has left side weakness) Lymphatic: No adenopathy SpO2 Interpretation: normal O2 Delivery: Room Air - Course Nursing assessment & vital signs reviewed: Yes Ordered Tests: Active Orders 24 hr Category Date Time Status EKG-ER Only STAT Care 05/03/22 08:19 Active IV Insertion STAT Care 05/03/22 07:59 Active cath [Cath for Specimen-Straight] STAT Care 05/03/22 11:45 Active CHEST 1 VIEW (PORTABLE) Stat Exams 05/03/22 08:19 Completed ABG [ARTERIAL BLOOD GASES] Stat Lab 05/03/22 11:05 Completed CBC W DIFF Stat Lab 05/03/22 08:13 Completed CMP Stat Lab 05/03/22 08:13 Completed CULTURE,URINE Stat Lab 05/03/22 11:46 Ordered ETHYL ALCOHOL Stat Lab 05/03/22 08:47 Completed MAGNESIUM Stat Lab 05/03/22 08:19 Completed UA W/RFX CULTURE Stat Lab 05/03/22 11:46 Completed Urine Triage Profile Stat Lab 05/03/22 11:46 Ordered Medication Summary Generic Name Dose Route Start Last Admin Trade Name Freq PRN Reason Stop Dose Admin Sodium Chloride 1,000 mls @ 999 mls/hr 05/03/22 11:22 05/03/22 11:29 Sodium Chloride 0.9% 1000 Ml IV 05/03/22 12:22 999 mls/hr .Q1H1M STA Administration Discontinued Medications Generic Name Dose Route Start Last Admin Trade Name Freq PRN Reason Stop Dose Admin Methylprednisolone Sodium 0 mg 05/03/22 08:00 05/03/22 08:19 Succinate 125 mg/ Sterile IV 05/03/22 08:01 125 mg Water 2 ml STAT ONE Administration Erythromycin 1 gm 05/03/22 10:16 05/03/22 10:38 Erythromycin Base 1 Gm Tube Eye Ointment OP 05/03/22 10:17 1 gm STAT STA Administration Erythromycin Confirm 05/03/22 10:37 Erythromycin Base 1 Gm Tube Eye Ointment Administered 05/03/22 10:38 Dose 1 gm .ROUTE .STK-MED ONE Fluorescein Sodium Confirm 05/03/22 08:00 Fluorescein Sodium 1 Mg/Strip Strip Administered 05/03/22 08:01 Dose 1 mg OP .STK-MED ONE Sodium Chloride 1,000 mls @ 999 mls/hr 05/03/22 08:00 05/03/22 10:39 Sodium Chloride 0.9% 1000 Ml IV 05/03/22 09:00 Infused .Q1H1M STA Infusion Sodium Chloride Confirm 05/03/22 08:15 Sodium Chloride 0.9% 1000 Ml Administered 05/03/22 08:16 Dose 1,000 mls @ ud .ROUTE .STK-MED ONE Sodium Chloride Confirm 05/03/22 11:28 Sodium Chloride 0.9% 1000 Ml Administered 05/03/22 11:29 Dose 1,000 mls @ ud .ROUTE .STK-MED ONE Lorazepam 1 mg 05/03/22 08:36 05/03/22 10:37 Lorazepam 2 Mg/1 Ml 2 Mg Vial IV 05/03/22 08:37 1 mg STAT ONE Administration Lorazepam Confirm 05/03/22 10:35 Lorazepam 2 Mg/1 Ml 2 Mg Vial Administered 05/03/22 10:36 Dose 2 mg .ROUTE .STK-MED ONE Methylprednisolone Sodium Succinate Confirm 05/03/22 08:15 Methylprednis Sod Succ 125 Mg/2 Ml Vial Administered 05/03/22 08:16 Dose 125 mg .ROUTE .STK-MED ONE Morphine Sulfate 4 mg 05/03/22 08:00 05/03/22 08:18 Morphine Sulfate 4 Mg/Ml Injection IV 05/03/22 08:01 4 mg STAT ONE Administration Morphine Sulfate Confirm 05/03/22 08:15 Morphine Sulfate 4 Mg/Ml Injection Administered 05/03/22 08:16 Dose 4 mg .ROUTE .STK-MED ONE Ondansetron HCl 4 mg 05/03/22 08:00 05/03/22 08:18 Ondansetron Hcl 4 Mg/2 Ml Vial IV 05/03/22 08:01 4 mg STAT ONE Administration Ondansetron HCl Confirm 05/03/22 08:14 Ondansetron Hcl 4 Mg/2 Ml Vial Administered 05/03/22 08:15 Dose 4 mg .ROUTE .STK-MED ONE Sterile Water Confirm 05/03/22 08:14 Water For Injection,Sterile 10 Ml Vial Administered 05/03/22 08:15 Dose 10 ml IJ .STK-MED ONE Tetracaine HCl Confirm 05/03/22 07:59 Tetracaine Hcl/Pf 4 Ml Bottle Administered 05/03/22 08:00 Dose 4 ml OP .STK-MED ONE Lab/Rad Data: Laboratory Result Diagrams 05/03/22 08:13 05/03/22 08:13 Laboratory Results 05/03/22 05/03/22 05/03/22 Range/Units 11:46 11:05 10:21 WBC (4.0-10.5) x10^3/uL RBC (4.1-5.6) x10^6/uL Hgb (12.5-18.0) g/dL Hct (42-50) % MCV (78-100) fL MCH (26-32) pg MCHC (32-36) g/dL RDW (11.5-14.0) % Plt Count (150-450) x10^3/uL MPV (7.5-11.0) fL Gran % (36.0-66.0) % Immature Gran % (Auto) (0.00-0.4) % Nucleat RBC Rel Count (0.00-0.1) % Eos # (Auto) (0-0.5) x10^3/uL Immature Gran # (Auto) (0.00-0.03) x10^3u/L Absolute Lymphs (auto) (1.0-4.6) x10^3/uL Absolute Monos (auto) (0.0-1.3) x10^3/uL Absolute Nucleated RBC (0.00-0.01) x10^3u/L Lymphocytes % (24.0-44.0) % Monocytes % (0.0-12.0) % Eosinophils % (0.00-5.0) % Basophils % (0.0-0.4) % Absolute Granulocytes (1.4-6.9) x10^3/uL Basophils # (0-0.4) x10^3/uL Puncture Site RIGHT RADIAL pCO2 41 (35-45) mmHg pO2 71 L (75-100) mmHg Base Excess -2.2 L (-2.0-2.0) O2 Saturation 93.8 L (94-100) g/dF ABG pH 7.36 (7.35-7.45) ABG HCO3 23.2 (22-28) ABG O2 Sat (Measured) 96.4 (95-100) % Perez Test YES A-a Gradient 77 a/A Ratio 0.48 Hemoglobin 13.2 Carboxyhemoglobin 2.2 (0.0-6.9) % THgb Methemoglobin 0.6 L (1.4-1.5) % Temperature 37.0 C POC O2 Flow Rate 28 % Sodium (137-145) mmol/L Potassium 4.2 (3.5-5.1) mmol/L Chloride (98-107) mmol/L Carbon Dioxide (22-30) mmol/L Anion Gap (5-15) MEQ/L BUN (9-20) mg/dL Creatinine (0.66-1.25) mg/dL Estimated GFR ML/MIN Glucose (74-106) mg/dL Calcium (8.4-10.2) mg/dL Magnesium (1.6-2.3) mg/dL Total Bilirubin (0.2-1.3) mg/dL AST (17-59) U/L ALT (0-50) U/L Alkaline Phosphatase (38-126) U/L Serum Total Protein (6.3-8.2) g/dL Albumin (3.5-5.0) g/dL Urinalys Dipstick Clnc MAIN LAB Urine Color YELLOW (YELLOW) Urine Appearance CLEAR (CLEAR) Urine pH 5.0 (5-6) Ur Specific [place] >=1.030 A (1.005-1.025) POC Urine Protein Conf NEGATIVE (Negative) Urine Ketones LARGE-80 A (NEGATIVE) Urine Nitrite NEGATIVE (NEGATIVE) Urine Bilirubin SMALL A (NEGATIVE) Urine Urobilinogen 0.2 (0-1) mg/dL Urine Leukocytes NEGATIVE (NEGATIVE) Urine WBC (Auto) NONE (0-5) /HPF Urine RBC (Auto) NONE (0-2) /HPF U Epithel Cells (Auto) NONE (FEW) /HPF Urine Bacteria (Auto) RARE (NEGATIVE) /HPF Urine RBC NEGATIVE (0-5) Pa/ul Urine Mucus (Auto) SLIGHT A (NEGATIVE) /HPF Ur Culture Indicated? NO Urine Glucose NEGATIVE (NEGATIVE) mg/dL Ethyl Alcohol (0-10) mg/dL Influenza Type A Ag NEGATIVE (NEGATIVE) Influenza Type B Ag NEGATIVE (NEGATIVE) RSV (PCR) NEGATIVE (Negative) SARS-CoV-2 (PCR) NEGATIVE (NEGATIVE) 05/03/22 05/03/22 05/03/22 Range/Units 08:47 08:19 08:13 WBC (4.0-10.5) x10^3/uL RBC (4.1-5.6) x10^6/uL Hgb (12.5-18.0) g/dL Hct (42-50) % MCV (78-100) fL MCH (26-32) pg MCHC (32-36) g/dL RDW (11.5-14.0) % Plt Count (150-450) x10^3/uL MPV (7.5-11.0) fL Gran % (36.0-66.0) % Immature Gran % (Auto) (0.00-0.4) % Nucleat RBC Rel Count (0.00-0.1) % Eos # (Auto) (0-0.5) x10^3/uL Immature Gran # (Auto) (0.00-0.03) x10^3u/L Absolute Lymphs (auto) (1.0-4.6) x10^3/uL Absolute Monos (auto) (0.0-1.3) x10^3/uL Absolute Nucleated RBC (0.00-0.01) x10^3u/L Lymphocytes % (24.0-44.0) % Monocytes % (0.0-12.0) % Eosinophils % (0.00-5.0) % Basophils % (0.0-0.4) % Absolute Granulocytes (1.4-6.9) x10^3/uL Basophils # (0-0.4) x10^3/uL Puncture Site pCO2 (35-45) mmHg pO2 (75-100) mmHg Base Excess (-2.0-2.0) O2 Saturation (94-100) g/dF ABG pH (7.35-7.45) ABG HCO3 (22-28) ABG O2 Sat (Measured) (95-100) % Perez Test A-a Gradient a/A Ratio Hemoglobin Carboxyhemoglobin (0.0-6.9) % THgb Methemoglobin (1.4-1.5) % Temperature C POC O2 Flow Rate % Sodium 138 (137-145) mmol/L Potassium 4.4 (3.5-5.1) mmol/L Chloride 104 (98-107) mmol/L Carbon Dioxide 22 (22-30) mmol/L Anion Gap 15.6 H (5-15) MEQ/L BUN 8 L (9-20) mg/dL Creatinine 0.60 L (0.66-1.25) mg/dL Estimated GFR > 60.0 ML/MIN Glucose 130 H (74-106) mg/dL Calcium 9.0 (8.4-10.2) mg/dL Magnesium 1.8 (1.6-2.3) mg/dL Total Bilirubin 0.90 (0.2-1.3) mg/dL AST 42 (17-59) U/L ALT 29 (0-50) U/L Alkaline Phosphatase 81 (38-126) U/L Serum Total Protein 7.9 (6.3-8.2) g/dL Albumin 4.6 (3.5-5.0) g/dL Urinalys Dipstick Clnc Urine Color (YELLOW) Urine Appearance (CLEAR) Urine pH (5-6) Ur Specific [place] (1.005-1.025) POC Urine Protein Conf (Negative) Urine Ketones (NEGATIVE) Urine Nitrite (NEGATIVE) Urine Bilirubin (NEGATIVE) Urine Urobilinogen (0-1) mg/dL Urine Leukocytes (NEGATIVE) Urine WBC (Auto) (0-5) /HPF Urine RBC (Auto) (0-2) /HPF U Epithel Cells (Auto) (FEW) /HPF Urine Bacteria (Auto) (NEGATIVE) /HPF Urine RBC (0-5) Pa/ul Urine Mucus (Auto) (NEGATIVE) /HPF Ur Culture Indicated? Urine Glucose (NEGATIVE) mg/dL Ethyl Alcohol < 10 (0-10) mg/dL Influenza Type A Ag (NEGATIVE) Influenza Type B Ag (NEGATIVE) RSV (PCR) (Negative) SARS-CoV-2 (PCR) (NEGATIVE) 05/03/22 Range/Units 08:13 WBC 9.8 (4.0-10.5) x10^3/uL RBC 4.69 (4.1-5.6) x10^6/uL Hgb 14.7 (12.5-18.0) g/dL Hct 47.3 (42-50) % MCV 100.9 H (78-100) fL MCH 31.3 (26-32) pg MCHC 31.1 L (32-36) g/dL RDW 13.6 (11.5-14.0) % Plt Count 183 (150-450) x10^3/uL MPV 11.3 H (7.5-11.0) fL Gran % 74.6 H (36.0-66.0) % Immature Gran % (Auto) 0.4 (0.00-0.4) % Nucleat RBC Rel Count 0.0 (0.00-0.1) % Eos # (Auto) 0.04 (0-0.5) x10^3/uL Immature Gran # (Auto) 0.04 H (0.00-0.03) x10^3u/L Absolute Lymphs (auto) 1.52 (1.0-4.6) x10^3/uL Absolute Monos (auto) 0.85 (0.0-1.3) x10^3/uL Absolute Nucleated RBC 0.00 (0.00-0.01) x10^3u/L Lymphocytes % 15.5 L (24.0-44.0) % Monocytes % 8.6 (0.0-12.0) % Eosinophils % 0.4 (0.00-5.0) % Basophils % 0.5 (0.0-0.4) % Absolute Granulocytes 7.33 H (1.4-6.9) x10^3/uL Basophils # 0.05 (0-0.4) x10^3/uL Puncture Site pCO2 (35-45) mmHg pO2 (75-100) mmHg Base Excess (-2.0-2.0) O2 Saturation (94-100) g/dF ABG pH (7.35-7.45) ABG HCO3 (22-28) ABG O2 Sat (Measured) (95-100) % Perez Test A-a Gradient a/A Ratio Hemoglobin Carboxyhemoglobin (0.0-6.9) % THgb Methemoglobin (1.4-1.5) % Temperature C POC O2 Flow Rate % Sodium (137-145) mmol/L Potassium (3.5-5.1) mmol/L Chloride (98-107) mmol/L Carbon Dioxide (22-30) mmol/L Anion Gap (5-15) MEQ/L BUN (9-20) mg/dL Creatinine (0.66-1.25) mg/dL Estimated GFR ML/MIN Glucose (74-106) mg/dL Calcium (8.4-10.2) mg/dL Magnesium (1.6-2.3) mg/dL Total Bilirubin (0.2-1.3) mg/dL AST (17-59) U/L ALT (0-50) U/L Alkaline Phosphatase (38-126) U/L Serum Total Protein (6.3-8.2) g/dL Albumin (3.5-5.0) g/dL Urinalys Dipstick Clnc Urine Color (YELLOW) Urine Appearance (CLEAR) Urine pH (5-6) Ur Specific [place] (1.005-1.025) POC Urine Protein Conf (Negative) Urine Ketones (NEGATIVE) Urine Nitrite (NEGATIVE) Urine Bilirubin (NEGATIVE) Urine Urobilinogen (0-1) mg/dL Urine Leukocytes (NEGATIVE) Urine WBC (Auto) (0-5) /HPF Urine RBC (Auto) (0-2) /HPF U Epithel Cells (Auto) (FEW) /HPF Urine Bacteria (Auto) (NEGATIVE) /HPF Urine RBC (0-5) Pa/ul Urine Mucus (Auto) (NEGATIVE) /HPF Ur Culture Indicated? Urine Glucose (NEGATIVE) mg/dL Ethyl Alcohol (0-10) mg/dL Influenza Type A Ag (NEGATIVE) Influenza Type B Ag (NEGATIVE) RSV (PCR) (Negative) SARS-CoV-2 (PCR) (NEGATIVE) - Progress Progress: improved, re-examined Progress Note: 05/03/22 08:20 Further discussion with the patient's brother stated that the odor of the chemical was like that of sulfur. Patient is not wheezing. Patient is not aba ivating. Patient is in no respiratory distress. His primary complaint is burning of the eyes. Hydrogen sulfide poisoning is in the differential. We will place him on oxygen and obtain laboratory work-up as well as EKG and chest x-ray. We will also have him decontaminate himself in the shower. 05/03/22 08:21 05/03/22 08:37 Additional history obtained from the patient's brother. Patient drinks approximately 30 beers a day. 05/03/22 08:48 Chest x-ray shows no acute cardiopulmonary processes. 05/03/22 11:41 Patient appears more comfortable at this time. Counseled pt/family regarding: lab results, diagnosis, rad results - Departure Departure Disposition: Home Clinical Impression: Exposure to chemical irritant Condition: Stable Critical Care Time: No Referrals: NOELLE CAMERON [Primary Care Provider] - Follow up/PCP as directed Additional Instructions: Rinse your eyes out 4 times a day. After each rinsing, instill erythromycin antibiotic ointment. Take all your medications as prescribed. Follow-up with your primary care provider on 05/06/2022. Call the office of Dr. Cameron this afternoon to make an appointment for that date. Additionally, call an restaurant worker (names provided) to make arrangements for follow-up appointment. Do not go back to the area of exposure. Contact the appropriate government agency to assess the trailer and clear it from potential future chemi venus exposures Prescriptions: Hydrocodone/APAP 5/325 [[place] 5/325 mg] 1 each PO Q6H PRN PRN #10 tablet MDD 4 PRN Reason: Pain Erythromycin Base 3.5 gm [Erythromycin 3.5 GM OPHTH.] 3.5 gm OP QID #1 unit
[2022-05-03] MEDS ORDERED: TETRACAINE 0.5% STERI-UNIT SOL OP ONE (07:59)
[2022-05-03] MEDS ORDERED: Zofran 4 MG/2 ML VIAL IV ONE (08:00)
[2022-05-03] MEDS ORDERED: Fluor-I-Strip/Ful-Flo OP ONE (08:00)
[2022-05-03] MEDS ORDERED: MORPHINE SULFATE 4 MG INJ IV ONE (08:00)
[2022-05-03] MEDS ORDERED: Sodium Chloride 0.9% 1000 ML 1,000 ML IV STA ×2 (08:00→11:22)
[2022-05-03] MEDS ORDERED: solu-MEDROL 125 MG, Sterile H2O 10 ml 2 ML IV ONE ×2 (08:00)
[2022-05-03 08:14] LABS: Absolute Neutrophil Ct (ANC) 7.33 x10^3/uL (1.4-6.9); Basophil (Absolute #) 0.05 x10^3/uL (0-0.4); Eosinophil % 0.4 % (0.00-5.0); Eosinophil (Absolute #) 0.04 x10^3/uL (0-0.5); Hematocrit 47.3 % (42-50); Hemoglobin 14.7 g/dL (12.5-18.0); Lymphocyte (Absolute #) 1.52 x10^3/uL (1.0-4.6); Lymphocytes % 15.5 % (24.0-44.0); Mean Cell Volume 100.9 fL (78-100); Mean Corpuscular Hemoglobin 31.3 pg (26-32); Mean Corpuscular Hgb Concent. 31.1 g/dL (32-36); Mean Platelet Volume 11.3 fL (7.5-11.0); Monocyte (Absolute #) 0.85 x10^3/uL (0.0-1.3); Monocytes % 8.6 % (0.0-12.0); Neutrophil % 74.6 % (36.0-66.0); Platelet Count 183 x10^3/uL (150-450); Red Blood Count 4.69 x10^6/uL (4.1-5.6); Red Cell Distribution Width 13.6 % (11.5-14.0); White Blood Count 9.8 x10^3/uL (4.0-10.5)
[2022-05-03] MEDS ORDERED: Zofran 4 MG/2 ML VIAL ONE (08:14)
[2022-05-03] MEDS ORDERED: Sterile H2O 10 ml IJ ONE (08:14)
[2022-05-03] MEDS ORDERED: Sodium Chloride 0.9% 1000 ML 1,000 ML ONE ×2 (08:15→11:28)
[2022-05-03] MEDS ORDERED: solu-MEDROL ONE (08:15)
[2022-05-03] MEDS ORDERED: MORPHINE SULFATE 4 MG INJ ONE (08:15)
[2022-05-03] MEDS ORDERED: Ativan 2 MG/1 ML VIAL IV ONE (08:36)
--- NOTE | 2022-05-03 08:42 | XRAY ---
Indication: Inhalation of chemicals. Comparison: None Portable chest hyperinflated and clear. Heart and mediastinal structures within normal limits. Bony thorax intact with mild osteopenia, degenerative changes, old left 8 rib fracture, and partially visualized lower cervical fusion hardware. Impression: Nonacute hyperinflated chest with chronic bony findings.
[2022-05-03 09:01] LABS: ALBUMIN 4.6 g/dL (3.5-5.0); ALKALINE PHOSPHATASE 81 U/L (38-126); ANION GAP 15.6 MEQ/L (5-15); BLOOD UREA NITROGEN 8 mg/dL (9-20); CHLORIDE 104 mmol/L (98-107); Carbon Dioxide 22 mmol/L (22-30); EST GLOMERULAR FILTRATION RATE > 60.0 ML/MIN; Potassium 4.4 mmol/L (3.5-5.1); SGOT/AST 42 U/L (17-59); SGPT/ALT 29 U/L (0-50); SODIUM 138 mmol/L (137-145); Total Protein 7.9 g/dL (6.3-8.2)
[2022-05-03 09:03] LABS: Glucose 130 mg/dL (74-106)
[2022-05-03] MEDS ORDERED: Erythromycin 1 GM OP STA (10:16)
[2022-05-03] MEDS ORDERED: Ativan 2 MG/1 ML VIAL ONE (10:35)
[2022-05-03] MEDS ORDERED: Erythromycin 1 GM ONE (10:37)
[2022-05-03 10:57] LABS: INFLUENZA A NEGATIVE (NEGATIVE); INFLUENZA B NEGATIVE (NEGATIVE); RESPIRATORY SYNCTIAL VIRUS NEGATIVE (Negative); SARS-CoV-2 Xpert Express NEGATIVE (NEGATIVE)
[2022-05-03 11:10] VITALS: O2SAT 95
[2022-05-03 11:17] LABS: A-aADO2 77; ABG HEMOGLOBIN 13.2; ABG POTASSIUM 4.2 (3.5-5.1); ABG SITE RIGHT RADIAL; ALLEN TEST OK? YES; ARTERIAL BLD GAS O2 SATURATION 96.4 % (95-100); ARTERIAL BLOOD GAS BASE EXCESS -2.2 (-2.0-2.0); ARTERIAL BLOOD GAS FIO2 28 %; ARTERIAL BLOOD GAS PCO2 41 mmHg (35-45); ARTERIAL BLOOD GAS PO2 71 mmHg (75-100); ARTERIAL BLOOD GAS pH 7.36 (7.35-7.45); CARBOXYHEMOGLOBIN 2.2 % THgb (0.0-6.9); HCO3- 23.2 (22-28); HGB O2 SAT 93.8 g/dF (94-100); Methhemoglobin 0.6 % (1.4-1.5)
[2022-05-03 11:26] VITALS: BP 151/78
[2022-05-03 11:58] LABS: Appearance CLEAR (CLEAR); Bacteria RARE /HPF (NEGATIVE); Bilirubin SMALL (NEGATIVE); Dipstick done @ ? MAIN LAB; Glucose NEGATIVE (NEGATIVE); Ketones LARGE-80 (NEGATIVE); Mucus SLIGHT /HPF (NEGATIVE); Nitrite NEGATIVE (NEGATIVE); Protein,Urine Dip NEGATIVE (Negative); RBC NEGATIVE Ery/ul (0-5); Specific Gravity >=1.030 (1.005-1.025); Urobilinogen 0.2 mg/dL (0-1)
[2022-05-03 11:59] LABS: Urine Cultured Indicated? NO
[2022-05-03 12:23] LABS: Amphetamine,Urine NEGATIVE (NEGATIVE); Barbiturate,Urine NEGATIVE (NEGATIVE); Benzodiazepine,Urine NEGATIVE (NEGATIVE); Cocaine,Urine NEGATIVE (NEGATIVE); Methadone,Urine NEGATIVE (NEGATIVE); Opiate,Urine POSITIVE (NEGATIVE); PCP,Urine NEGATIVE (NEGATIVE); THC,Urine NEGATIVE (NEGATIVE)
[2022-05-03] MEDS ORDERED: LOPRESSOR INJECTION IV ONE (12:28)
[2022-05-03 12:31] VITALS: PULSE 83
== END 2022-05-03 12:42 | disposition home or self-care (01) ==
LOC: ED 07:39 → MERGE 07:39 → ED 12:42
DX: T65.91XA Toxic effect of unspecified substance, accidental (unintentional), initial encounter (principal); H57.12 Ocular pain, left eye; Y92.029 Unspecified place in mobile home as the place of occurrence of the external cause; Z79.02 Long term (current) use of antithrombotics/antiplatelets; Z79.899 Other long term (current) drug therapy; Z79.891 Long term (current) use of opiate analgesic
CPT/HCPCS: 0241U; 36000; 36415; 36600; 71045; 80053; 80307; 81015; 82375; 82803; 83735; 85025; 87086; 93005; 96360; 96374; 96375; 99284; P9612; J2060; J2270; J2405; J2930; A9270-GY; G0480

== ENCOUNTER 2022-07-07 20:56 | Emergency (ER) | payer OTHER ==
--- NOTE | 2022-07-07 22:00 | ERPHSYRPT ---
- History of Present Illness Source: patient Exam Limitations: other (Poor historian) Patient Subjective Stated Complaint: Pt states " i have had a headache since Friday, and have been congested" Triage Nursing Assessment: pt ambulated to room, pt is A&O, no swelling noted, skin wnl.pt states " I have had congestion in my nose and chest for a month or so" pt complaining of " chilling" pt is a&o x3, and a headache since Friday that seems to keep coming back" Physician History: 56 yo wm w frontal headache x 2 days. Pain is 5/10 and described as an ache. He has had nausea and vomiting x1. Pt has a h/o CVA 2 years ago and has a chronic L hemiparesis which has not progressed. He has had a mild cough and mild chills but denies fever. Light makes the noise worse. Trauma is denied. Pt states that he has similar headaches, but this one has not resolved. Timing/Duration: yesterday Quality: aching Head Pain Location: frontal Severity of Pain-Max: moderate Severity of Pain-Current: moderate Recent Head Trauma: no recent headache/trauma Modifying Factors: Improves With: exposure to light (Makes worse) Associated Symptoms: denies symptoms, fever/chills, nausea/vomiting, sensitive to light Previous symptoms: same symptoms as today Allergies/Adverse Reactions: Iodinated Contrast Media Allergy (Severe, Verified 05/03/22 08:52) shellfish derived Allergy (Verified 05/03/22 08:52) Home Medications: Albuterol Sulfate [Proair Hfa] 8.5 gm IH QIDPRN PRN 08/30/13 [History] Aspirin 81 mg PO DAILY 03/10/16 [History] Lisinopril 5 mg [Zestril 5 MG] 10 mg PO DAILY 03/10/16 [History] Fluticasone/Vilanterol [Breo Ellipta 100-25 Mcg INH] 1 each IH DAILY 06/09/17 [History] Montelukast Sodium 10 mg [Singulair 10 MG] 10 mg PO DAILY 06/09/17 [History] Acetaminophen 325 mg [Tylenol 325 mg] 2 tab PO Q4HPRN PRN 10/17/20 [History] Albuterol/Ipratropium 3ml Neb* [DUONEB 0.5-3 MG/3 ml Neb] 3 ml IH DAILY 10/17/20 [History] Atorvastatin Calcium 40 mg PO DAILY 10/17/20 [History] Gabapentin [Neurontin ] 300 mg PO TID 10/17/20 [History] Metoprolol Tartrate 25 mg PO DAILY 10/17/20 [History] Nitroglycerin 0.4 mg Tablet [Nitrostat 0.4 MG Tablet] 0.4 mg SL Q5MIN PRN MR X 3 PRN 10/17/20 [History] PANTOPRAZOLE 40 mg Tablet [Protonix 40MG Tablet] 40 mg PO BID 10/17/20 [History] Quetiapine Fumarate 25 mg [Seroquel 25 MG] 25 mg PO HS 10/17/20 [History] Sennosides [Senna Laxative] 8.6 mg PO DAILY 10/17/20 [History] Clopidogrel Bisulfate [PLAVIX Tablet] 75 mg PO DAILY 05/03/22 [History] Hx Tetanus, Diphtheria Vaccination/Date Given: No Hx Influenza Vaccination/Date Given: No Hx Pneumococcal Vaccination/Date Given: No Immunizations Up to Date: No Travel Risk - International Travel Have you traveled outside of the country in past 3 weeks: No - Coronavirus Screening Are you exhibiting any of the following symptoms?: No Symptoms: Fever, Cough: New Onset, Shortness of Breath Close contact with a COVID-19 positive Pt in past 14-21 Days: No - Vaccine Status Have you recieved a Covid-19 vaccination: Yes 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 - Vaccination Dates Date of 2cond Vaccination (if applicable): 2021 - Review of Systems Constitutional: No Symptoms, Fever, Chills Eyes: 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) Ears, Nose, & Throat: No Symptoms, Nose Congestion, Nose Discharge Respiratory: No Symptoms, Cough Cardiac: No Symptoms Abdominal/Gastrointestinal: No Symptoms Genitourinary Symptoms: No Symptoms Musculoskeletal: No Symptoms Skin: No Symptoms Neurological: Headache Psychological: No Symptoms Endocrine: No Symptoms Hematologic/Lymphatic: No Symptoms Immunological/Allergic: No Symptoms - Past Medical History Pertinent Past Medical History: Yes Neurological History: Stroke ENT History: No Pertinent History Cardiac History: High Cholesterol, Hypertension Respiratory History: COPD Endocrine Medical History: No Pertinent History Musculoskeletal History: No Pertinent History GI Medical History: GERD History: No Pertinent History Psycho-Social History: No Pertinent History, Depression Male Reproductive Disorders: No Pertinent History Other Medical History: melatonin for trouble sleeping - Past Surgical History Past Surgical History: Yes Neuro Surgical History: No Pertinent History Cardiac: No Pertinent History Respiratory: No Pertinent History Gastrointestinal: No Pertinent History Genitourinary: No Pertinent History Musculoskeletal: No Pertinent History Male Surgical History: No Pertinent History Other Surgical History: spinal surgery through his neck twice, tubes in ears, feeding tube when he had a stroke - Social History Smoking Status: Former smoker How long have you smoked: 36 years Exposure to second hand smoke: Yes Alcohol Use: Socially Drug Use: none Patient Lives Alone: No (lives with brother and family) Significant Family History: hypertension - Nursing Vital Signs Nursing Vital Signs: Initial Vital Signs Temperature 99.9 F 07/07/22 20:56 Pulse Rate 118 H 07/07/22 20:56 Respiratory Rate 20 07/07/22 20:56 Blood Pressure 158/95 07/07/22 20:56 O2 Sat by Pulse Oximetry 97 07/07/22 20:56 Pain Scale Pain Intensity 8 Tachy/Hypertensive - Physical Exam General Appearance: no apparent distress Eye Exam: PERRL/EOMI, eyes nml inspection Ears, Nose, Throat Exam: pharynx normal, other (R TM occluded by cerumen) Neck Exam: normal inspection, non-tender, supple, full range of motion, No meningismus, No mass, No Brudzinski, No Kernig's, No carotid bruit Respiratory Exam: normal breath sounds, lungs clear, airway intact Cardiovascular Exam: tachycardia, capillary refill <2 sec, No murmur Gastrointestinal/Abdominal Exam: soft, normal bowel sounds, No tenderness Back Exam: normal inspection, normal range of motion, No CVA tenderness, No vertebral tenderness Extremity Exam: normal inspection, normal range of motion Mental Status Exam: alert, oriented x 3, 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 Exam: normal hearing, normal speech, PERRL, tongue midline, No abnormal eye position, No abnormal gag reflex, No facial asymmetry, No facial droop Motor/Sensory Exam: no motor deficit (Pt has mild chronic L hemiparesis which has not progressed), negative Babinski's sign DTR Exam: bicep (R): 2+, bicep (L): 2+ Skin Exam: normal color, warm, dry, No rash Lymphatic Exam: No adenopathy SpO2 Interpretation: normal SpO2: 97 O2 Delivery: Room Air - Course Nursing assessment & vital signs reviewed: Yes - CT Exams Head CT Interpretation: Tele-radiologist Report (CT head neg per [facility]) Ordered Tests: Active Orders 24 hr Category Date Time Status HEAD WITHOUT CONTRAST [CT] Stat Exams 07/07/22 21:53 Taken Medication Summary Discontinued Medications Generic Name Dose Route Start Last Admin Trade Name Amee PRN Reason Stop Dose Admin Ketorolac Tromethamine 30 mg 07/07/22 23:07 07/07/22 23:10 Ketorolac Tromethamine 30 Mg/Ml Inj IM 07/07/22 23:08 30 mg STAT ONE Administration Ketorolac Tromethamine Confirm 07/07/22 23:09 Ketorolac Tromethamine 30 Mg/Ml Inj Administered 07/07/22 23:10 Dose 30 mg .ROUTE .STK-MED ONE Lab/Rad Data: Laboratory Results 07/07/22 Range/Units 22:03 Influenza Type A Ag NEGATIVE (NEGATIVE) Influenza Type B Ag NEGATIVE (NEGATIVE) RSV (PCR) NEGATIVE (Negative) SARS-CoV-2 (PCR) NEGATIVE (NEGATIVE) - Progress Progress: improved Progress Note: 07/07/22 23:11 Vital signs and nursing note reviewed No food or housing insecurities noted Labs and CT report reviewed and shared w pt 30mg IM Toradol Serial neuro exams wo new focal weakness noted Counseled pt/family regarding: lab results, diagnosis, need for follow-up, rad results - Departure Departure Disposition: Home Clinical Impression: Headache Condition: Stable Critical Care Time: No Referrals: NOELLE PALMER [Primary Care Provider] - Follow up/PCP as directed Instructions: Headache, Adult (DC) Additional Instructions: Follow up with your family MD Return to ER for worsening headache, worsening focal weakness, or temperature greater than 100.5
[2022-07-07 22:41] LABS: INFLUENZA A NEGATIVE (NEGATIVE); INFLUENZA B NEGATIVE (NEGATIVE); RESPIRATORY SYNCTIAL VIRUS NEGATIVE (Negative); SARS-CoV-2 Xpert Express NEGATIVE (NEGATIVE)
[2022-07-07] MEDS ORDERED: TORAdol 30 mg Injection IM ONE (23:07)
[2022-07-07] MEDS ORDERED: TORAdol 30 mg Injection ONE (23:09)
[2022-07-07 23:15] VITALS: PULSE 113
[2022-07-07 23:23] VITALS: BP 165/86
[2022-07-07 23:56] VITALS: O2SAT 97
--- NOTE | 2022-07-08 08:46 | XRAY ---
Indication: Headache, nausea, and vomiting. Remote stroke 2 years ago. Multiple contiguous axial images obtained through the head without contrast. Comparison: August 17, 2020 New finding moderate sized old right temporoparietal infarct. No acute intracranial hemorrhage, hydrocephalus, or mass effect. Fourth ventricle is midline. Bony calvarium intact. Visualized paranasal sinuses and mastoid air cells are clear. Impression: Old right temporoparietal infarct. No acute intracranial abnormalities. Comment: Preliminary interpretation made by [facility]. No critical discrepancy.
== END 2022-07-07 23:23 | disposition home or self-care (01) ==
LOC: ED 20:56
DX: R51.9 Headache, unspecified (principal); R11.2 Nausea with vomiting, unspecified; E78.5 Hyperlipidemia, unspecified; I10 Essential (primary) hypertension; Z79.02 Long term (current) use of antithrombotics/antiplatelets; Z79.899 Other long term (current) drug therapy
CPT/HCPCS: 0241U; 70450; 96372; 99283; J1885

== ENCOUNTER 2023-12-05 10:04 | Emergency (ER) | payer OTHER ==
[2023-12-05 10:17] VITALS: BP 169/100; PULSE 89; TEMP 97.6; O2SAT 99
--- NOTE | 2023-12-05 10:24 | ERPHSYRPT ---
- History of Present Illness Time Seen by Provider: 12/05/23 10:10 Source: patient Exam Limitations: no limitations Patient Subjective Stated Complaint: Pt tripped over a potty chair in the bathroom yesterday morning and injured his right ribs causing pain and unable to move his right arm fully due to the rib pain Triage Nursing Assessment: Pt was brought to the ER by a friend, hypertensive, rates pain as 10/10, some mild bruising to the upper right lateral ribs, no difficulty breathing, pain with movement, denies hitting head or LOC, pt walked into the ER without assistance Physician History: 58 y/o white male pt of dr. jain who fell yesterday in the bathroom and injured right anterolateral ribs. tenderness worse today. pt s/p cva with residual left side weakness. h/o gerdz, depression, copd, htn, on plavix, hyperlipidemia. no sob. no head or neck injury. no loc Occurred: yesterday Reason for Fall: lost balance Injuries/Pain Location: chest (right anterolateral chest wall) Loss of Consciousness: no loss of consciousness Quality: aching Severity of Pain-Max: moderate Severity of Pain-Current: moderate Modifying Factors: Improves With: other (hurts to take a deep breath) Associated Symptoms (Fall): denies symptoms Allergies/Adverse Reactions: Iodinated Contrast Media Allergy (Severe, Verified 12/05/23 10:17) shellfish derived Allergy (Verified 12/05/23 10:17) Home Medications: Albuterol Sulfate [Proair Hfa] 8.5 gm IH QIDPRN PRN 08/30/13 [History] Aspirin 81 mg PO DAILY 03/10/16 [History] Lisinopril 5 mg [Zestril 5 MG] 10 mg PO DAILY 03/10/16 [History] Fluticasone/Vilanterol [Breo Ellipta 100-25 Mcg Inhalr] 1 each IH DAILY 06/09/17 [History] Montelukast Sodium 10 mg [Singulair 10 MG] 10 mg PO DAILY 06/09/17 [History] Acetaminophen 325 mg [Tylenol 325 mg] 2 tab PO Q4HPRN PRN 10/17/20 [History] Albuterol/Ipratropium 3ml Neb* [DUONEB 0.5-3 MG/3 ml Neb] 3 ml IH DAILY 10/17/20 [History] Atorvastatin Calcium 40 mg PO DAILY 10/17/20 [History] Gabapentin [Neurontin ] 300 mg PO TID 10/17/20 [History] Metoprolol Tartrate 25 mg PO DAILY 10/17/20 [History] Nitroglycerin 0.4 mg Tablet [Nitrostat 0.4 MG Tablet] 0.4 mg SL Q5MIN PRN MR X 3 PRN 10/17/20 [History] PANTOPRAZOLE 40 mg Tablet [Protonix 40MG Tablet] 40 mg PO BID 10/17/20 [History] Quetiapine Fumarate 25 mg [Seroquel 25 MG] 25 mg PO HS 10/17/20 [History] Sennosides [Senna Laxative] 8.6 mg PO DAILY 10/17/20 [History] Clopidogrel Bisulfate [PLAVIX Tablet] 75 mg PO DAILY 05/03/22 [History] Hx Tetanus, Diphtheria Vaccination/Date Given: No Hx Influenza Vaccination/Date Given: No Hx Pneumococcal Vaccination/Date Given: No Travel Risk - International Travel Have you traveled outside of the country in past 3 weeks: No - Emerging Infectious Disease Are you exhibiting symptoms associated with any current EIDs: No - Review of Systems Constitutional: No Symptoms Eyes: No Symptoms Ears, Nose, & Throat: No Symptoms Respiratory: No Symptoms Cardiac: Chest Pain (right chest wall) Abdominal/Gastrointestinal: No Symptoms Genitourinary Symptoms: No Symptoms Musculoskeletal: No Symptoms Skin: No Symptoms Neurological: No Symptoms Psychological: No Symptoms Endocrine: No Symptoms Hematologic/Lymphatic: No Symptoms Immunological/Allergic: No Symptoms All Other Systems: Reviewed and Negative - Past Medical History Pertinent Past Medical History: Yes Neurological History: Stroke ENT History: No Pertinent History Cardiac History: High Cholesterol, Hypertension Respiratory History: COPD Endocrine Medical History: No Pertinent History Musculoskeletal History: No Pertinent History GI Medical History: GERD History: No Pertinent History Psycho-Social History: No Pertinent History, Depression Male Reproductive Disorders: No Pertinent History Other Medical History: melatonin for trouble sleeping - Past Surgical History Past Surgical History: Yes Neuro Surgical History: No Pertinent History Cardiac: No Pertinent History Respiratory: No Pertinent History Gastrointestinal: No Pertinent History Genitourinary: No Pertinent History Musculoskeletal: No Pertinent History Male Surgical History: No Pertinent History Other Surgical History: spinal surgery through his neck twice, tubes in ears, feeding tube when he had a stroke Significant Family History: hypertension - Social History Smoking Status: Former smoker How long have you smoked: 36 years Exposure to second hand smoke: No Alcohol Use: Socially Drug Use: none Patient Lives Alone: No (lives with brother and family) - Social Determinants of Health Will the patient participate in the screening: Yes Do you worry about a steady place to live?: No Do you have any problems with any of the following?: No known problems In the past 12 months,have you had to go without utilities?: No Transportation Issues: No Has anyone in your support network made you feel unsafe?: No Have you or anyone in your house had to go without enough: No - Nursing Vital Signs Nursing Vital Signs: Initial Vital Signs Temperature 97.6 F 12/05/23 10:09 Pulse Rate 89 12/05/23 10:09 Blood Pressure 169/100 12/05/23 10:09 O2 Sat by Pulse Oximetry 99 12/05/23 10:09 Pain Scale Pain Intensity 10 - [place] Coma Score Best Eye Response ([place]): (4) open spontaneously Best Verbal Response ([place]): (5) oriented Best Motor Response ([place]): (6) obeys commands [place] Total: 15 - Physical Exam General Appearance: no apparent distress, alert, anxiety Head Injury: no evidence of injury Eye Exam: PERRL/EOMI, eyes nml inspection ENT Exam: airway nml, nml ext.inspection, No evidence of ENT injury Neck Exam: supple, trachea midline, full range of motion, normal alignment, normal inspection Respiratory/Chest Exam: normal breath sounds, ecchymosis (right anterolateral chest wall), No crepitus Cardiovascular Exam: normal heart sounds, regular rate/rhythm Gastrointestinal Exam: soft, normal bowel sounds, No tenderness Rectal Exam: not done Back Exam: normal inspection, normal range of motion, No CVA tenderness, No vertebral tenderness Extremity Exam: normal inspection, normal range of motion, capillary refill <3 sec, pelvis stable Neurologic Exam: alert, oriented x 3, cooperative, applications administrator II-XII nml as tested, nml cerebellar function, nml station & gait, sensation nml, No normal mood/affect Skin Exam: normal color, warm, dry SpO2: 99 - Course Nursing assessment & vital signs reviewed: Yes Ordered Tests: Active Orders 24 hr Category Date Time Status RIBS UNILATERAL W/ PA CXR Stat Exams 12/05/23 10:30 Taken - Progress Progress: unchanged Progress Note: 12/05/23 10:26 my medical decision making and the assignment of low complexity to this patients medical issue today is based on pmhx, review of med list, review of allergy list, history of present illnes and physical findings of pt. work up includes cxr and right side rib xrays. diff dx includes but not limited to contusion, rib fx 12/05/23 11:21 i interpreted preliminary cxr and right rib xrays. no acute fx or any other cardiopulmonary process Counseled pt/family regarding: diagnosis, need for follow-up, rad results Medical Desision Making - Diagnostic Testing Diagnostic test were ordered, analyzed, and reviewed by me: Yes Radiological Interpretation: Interpreted by me - Risk of complications The pt has a mod risk of morbidity or mortality based on: Need for prescription drug management - Departure Departure Disposition: Home Clinical Impression: Contusion of rib on right side Condition: Stable Critical Care Time: No Referrals: NOELLE JAIN [Primary Care Provider] - Follow up/PCP as directed Additional Instructions: ice pack to tender area 3 times daily for 2 days. take medications as prescribed. call primary provider for further management and pain control Prescriptions: Oxycodone HCl/Acetaminophen [Percocet 5-325 mg Tablet] 1 each PO Q8H PRN PRN #6 tablet MDD 3 PRN Reason: Moderate To Severe Pain Prednisone 10 mg [Deltasone 10 mg] 10 mg PO TID #12 tablet
[2023-12-05] MEDS ORDERED: PERCOCET TABLET 5/325MG ONE (11:28)
[2023-12-05] MEDS: PERCOCET TABLET 5/325MG PO STA (11:29)
--- NOTE | 2023-12-05 13:30 | XRAY ---
CLINICAL HISTORY: fall COMPARISON: none TECHNIQUE: frontal view of the chest and 4views of the right ribs FINDINGS: no acute intrinsic bony abnormality is identified. Adjacent soft tissues are unremarkable. IMPRESSION: uunremarkable examination. Electronically Signed by: Delma Cross MD. (12/05/2023 11:01:01 EDT)
== END 2023-12-05 11:39 | disposition home or self-care (01) ==
LOC: ED 10:04
DX: S20.211A Contusion of right front wall of thorax, initial encounter (principal); W01.198A Fall on same level from slipping, tripping and stumbling with subsequent striking against other object, initial encounter; Y92.002 Bathroom of unspecified non-institutional (private) residence as the place of occurrence of the external cause; I10 Essential (primary) hypertension; E78.5 Hyperlipidemia, unspecified; Z79.02 Long term (current) use of antithrombotics/antiplatelets; Z79.891 Long term (current) use of opiate analgesic; Z79.52 Long term (current) use of systemic steroids; Z79.899 Other long term (current) drug therapy
CPT/HCPCS: 71101; 99282; A9270-GY

== ENCOUNTER → 2024-09-02 | Emergency (ER) | payer OTHER ==
[2012-05-19 08:01] VITALS: BP 123/66
[~2024-09-02] MED LIST: NORCO 10-325 MG ONE
--- NOTE | 2024-09-02 13:56 | XRAY ---
CLINICAL HISTORY: FALL, LT HIP PAIN COMPARISON: No prior studies available for comparison. TECHNIQUE: X-ray images of the left hip joint and pelvis were obtained in anteroposterior (AP) and lateral projections. FINDINGS: Pelvic Bones: No evidence of fractures, dislocations, or significant osseous lesions. Acetabular structures appear normal and intact. No signs of acetabular fracture or dysplasia. Femoral heads are normal and centered within the acetabulum. No evidence of fractures, avascular necrosis, or significant deformities. Hip Joints: Mild narrowing of the coxofemoral joint space seen with subchondral sclerosis. Sacroiliac joints appear normal and unremarkable. No evidence of sacroiliitis or significant degenerative changes. Symphysis Pubis: Symphysis pubis is normal and intact. No evidence of separation or widening. Soft Tissues: Visualized soft tissues are normal and unremarkable. No soft tissue swelling, calcifications, or masses. Additional Findings: No other significant abnormalities noted. IMPRESSION: Mild left coxofemoral osteoarthritic changes. Disclaimer: A subtle bone abnormality or fracture may not be readily apparent on X-rays, thus clinical correlation and further imaging including follow-up CT, MRI, or follow-up X-rays are advised as needed. Electronically Signed by: Harmony Nova MD. (09/02/2024 12:21:40 EDT)
== END | disposition home or self-care (01) ==
LOC: ED 11:00
DX: M16.12 Unilateral primary osteoarthritis, left hip (principal); M25.552 Pain in left hip; I10 Essential (primary) hypertension; Z79.02 Long term (current) use of antithrombotics/antiplatelets; Z79.899 Other long term (current) drug therapy
CPT/HCPCS: 73502; 99283; A9270-GY